=== PATIENT | female | born 1960 | race Caucasian/White ===

== ENCOUNTER 2021-09-24 11:23 | Observation (INO) | payer BC ==
[~2021-09-24] VITALS: Ht 160 cm; Wt 77.1 kg
[2021-09-24 12:11] LABS: HEMOGLOBIN 15.3 gm/dl (12.3-15.3); RED BLOOD COUNT 4.92 M/UL (4.00-5.10)
[2021-09-24 12:38] LABS: BUN/CREATININE RATIO 16 (0-10)
[2021-09-24] MEDS ORDERED: NEXIUM40 MG PO (14:48)
[2021-09-24] MEDS ORDERED: LEVOTHYROXINE125 MCG PO (14:49)
[2021-09-24] MEDS ORDERED: LINZESS290 MCG PO (14:49)
[2021-09-24] MEDS ORDERED: DRISDOL1250 MCG PO (14:51)
[2021-09-25 02:52] LABS: HEMOGLOBIN 13.7 gm/dl (12.3-15.3); RED BLOOD COUNT 4.46 M/UL (4.00-5.10)
[2021-09-25 03:14] LABS: BUN/CREATININE RATIO 19 (0-10)
[2021-09-26 06:30] LABS: HEMOGLOBIN 13.1 gm/dl (12.3-15.3); RED BLOOD COUNT 4.27 M/UL (4.00-5.10)
[2021-09-26 06:54] LABS: BUN/CREATININE RATIO 18 (0-10)
[2021-09-26] MEDS ORDERED: OMNICEF 300 MG300 MG PO (08:50)
[2021-09-26] MEDS ORDERED: AZITHROMYCIN500 MG PO (08:50)
[2021-09-26] MEDS ORDERED: ASPIRIN EC81 MG PO (08:50)
== END 2021-09-26 11:00 | disposition home or self-care (01) ==
LOC: ER1 11:23 → MED SURG 4 13:20 → CDU 13:20 → MED SURG 4 16:34
PROVIDERS: Emergency Medicine; Physician Assistant; ADMIT Internal Medicine
DX: R07.89 Other chest pain (principal); J18.9 Pneumonia, unspecified organism; U07.1 COVID-19; E03.9 Hypothyroidism, unspecified; K76.0 Fatty (change of) liver, not elsewhere classified; K80.20 Calculus of gallbladder without cholecystitis without obstruction; K82.8 Other specified diseases of gallbladder; E87.6 Hypokalemia; Z79.82 Long term (current) use of aspirin; Z23 Encounter for immunization
CPT/HCPCS: ECHO; 36415; 71045; 71275; 80048; 80053; 82550; 82553; 83874; 84484; 85025; 85027; 85379; 87040; 93005; 93306; 93970; 94664; 96372; 96374; 96376; 99285; G0378; J0456; J0696; J1100; J1650; J7030; Q9967; U0002

== ENCOUNTER 2021-09-28 10:27 | Emergency (ER) | payer BC ==
[~2021-09-28 10:27] MED LIST: ASPIRIN EC81 MG PO; AZITHROMYCIN500 MG PO; DRISDOL1250 MCG PO; LEVOTHYROXINE125 MCG PO; LINZESS290 MCG PO; NEXIUM40 MG PO; OMNICEF 300 MG300 MG PO
[2021-09-28 12:21] LABS: HEMOGLOBIN 14.2 gm/dl (12.3-15.3); RED BLOOD COUNT 4.6 M/UL (4.00-5.10)
[2021-09-28 12:23] LABS: WHITE BLOOD COUNT 4.5 K/UL (4.5-11.0)
[2021-09-28 12:50] LABS: BUN/CREATININE RATIO 13 (0-10)
== END 2021-09-28 13:23 | disposition left against medical advice (07) ==
LOC: ER1 10:27
PROVIDERS: Physician Assistant
DX: U07.1 COVID-19 (principal); F17.200 Nicotine dependence, unspecified, uncomplicated; Z79.82 Long term (current) use of aspirin
CPT/HCPCS: 80053; 85025; 99283